=== PATIENT | female | born 1940 | race African-American/Black ===

== ENCOUNTER 2016-09-16 12:32 | Inpatient (IN) | payer MEDICARE, BC ==
[2016-09-16] VITALS (356 sets, daily range): BP systolic 152; BP diastolic 82; PULSE 65; TEMP 97.3; O2SAT 93–100
[~2016-09-16] VITALS: Ht 175.3 cm; Wt 103.7 kg
[2016-09-16 13:48] LABS: BASO % 0.5 % (0.0-2.0); EOS % 0.9 % (0-4.0); GRAN # 2.2 (1.4-6.5); LYMPH # 1.5 (1.2-3.4); MEAN CELL VOLUME 82 fl (80.0-100.0); MEAN CORPUSCULAR HGB CONC 32 g/dl (33.0-37.0); MEAN PLATELET VOLUME 11.2 fl (7.4-10.4); MONO # 0.5 (0.1-0.6); MONO % 11.4 % (1.7-9.3); PLATELET COUNT 144 K/mm3 (130-400); RED BLOOD COUNT 4.35 M/mm3 (4.10-5.30); REDCELL DISTRIBUTION WIDTH-CV 14.6 % (11.5-14.5); WHITE BLOOD COUNT 4.3 K/mm3 (4.8-10.8)
[2016-09-16 13:52] LABS: HEMATOCRIT 35.8 % (37.0-47.0); HEMOGLOBIN 11.4 g/dl (12.5-16.0); MEAN CORPUSCULAR HEMOGLOBIN 26 pg (27.0-31.0)
[2016-09-16 13:53] LABS: ADJUSTED CALCIUM 10.3 mg/dL (8.4-10.2); ALANINE AMINOTRANSFERASE 34 U/L (9-52); ALKALINE PHOSPHATASE 118 U/L (50-136); ANION GAP 10 mmol/L (7-16); BILIRUBIN,TOTAL 0.8 mg/dL (0.0-1.0); BLOOD UREA NITROGEN 13 mg/dL (7-17); CALCIUM 10.3 mg/dL (8.4-10.2); CARBON DIOXIDE 30 mmol/L (22-30); CHLORIDE 102 mmol/L (98-107); CREATININE, serum 0.79 mg/dL (0.52-1.25); GLUCOSE 110 mg/dL (74-106); POTASSIUM 3.9 mmol/L (3.4-5.0); SODIUM 142 mmol/L (137-145)
[2016-09-16 13:55] LABS: INR 1.1 (0.8-3.0); PROTHROMBIN TIME 12.6 SECONDS (9.7-12.8)
[2016-09-16 13:58] LABS: PARTIAL THROMBOPLASTIN TIME 31.7 SECONDS (26.0-37.0)
[2016-09-16 14:05] LABS: B-TYPE NATRIURETIC PEPTIDE 45 pg/mL (0-125); TROPONIN-I < 0.012 ng/mL (0.000-0.034)
[2016-09-16] MEDS ORDERED: NORVASC 10MG10 MG PO (16:32)
[2016-09-16] MEDS ORDERED: PLAVIX 75MG TAB75 MG PO (16:32)
[2016-09-16] MEDS ORDERED: PRENATAL PO (16:33)
[2016-09-16] MEDS ORDERED: COZAAR100 MG PO (16:33)
[2016-09-16] MEDS ORDERED: NEURONTIN300 MG/CAP PO (16:33)
[2016-09-16] MEDS ORDERED: PRAVACHOL 20MG20 MG PO (16:34)
[2016-09-17] VITALS (784 sets, daily range): BP systolic 123–196; BP diastolic 64–107; PULSE 70–86; TEMP 97.3–98.4; O2SAT 88–100
[2016-09-17 04:51] LABS: PH 5 (5-8); SQUAMOUS EPITHELIAL 0-2 /hpf; URINE APPEARANCE Clear; URINE BACTERIA None Seen /hpf; URINE BILIRUBIN Negative (NEGATIVE); URINE BLOOD Negative (NEGATIVE); URINE COLOR Yellow; URINE GLUCOSE Negative (NEGATIVE); URINE KETONE Negative (NEGATIVE); URINE RBC 0-2 /hpf; URINE UROBILINOGEN Negative (NEGATIVE)
[2016-09-17 05:58] LABS: BASO % 0.4 % (0.0-2.0); EOS # 0.1 (0.0-0.7); EOS % 1.3 % (0-4.0); GRAN # 2.5 (1.4-6.5); GRAN % 55.4 % (42.2-75.2); LYMPH # 1.5 (1.2-3.4); LYMPH % 33.3 % (20.0-51.0); MEAN CELL VOLUME 81 fl (80.0-100.0); MEAN CORPUSCULAR HGB CONC 32 g/dl (33.0-37.0); MEAN PLATELET VOLUME 11.4 fl (7.4-10.4); MONO # 0.4 (0.1-0.6); MONO % 9.2 % (1.7-9.3); PLATELET COUNT 147 K/mm3 (130-400); REDCELL DISTRIBUTION WIDTH-CV 14.6 % (11.5-14.5); WHITE BLOOD COUNT 4.5 K/mm3 (4.8-10.8)
[2016-09-17 06:12] LABS: HEMATOCRIT 34.2 % (37.0-47.0); HEMOGLOBIN 10.9 g/dl (12.5-16.0); MEAN CORPUSCULAR HEMOGLOBIN 26 pg (27.0-31.0)
[2016-09-17 06:14] LABS: ANION GAP 12 mmol/L (7-16); BLOOD UREA NITROGEN 12 mg/dL (7-17); CALCIUM 10.3 mg/dL (8.4-10.2); CARBON DIOXIDE 29 mmol/L (22-30); CHLORIDE 102 mmol/L (98-107); CREATININE, serum 0.67 mg/dL (0.52-1.25); GLUCOSE 112 mg/dL (74-106); POTASSIUM 3.8 mmol/L (3.4-5.0); SODIUM 142 mmol/L (137-145)
[2016-09-17 06:30] LABS: TROPONIN-I < 0.012 ng/mL (0.000-0.034)
[2016-09-17 06:42] LABS: CHOLESTEROL 155 mg/dL (120-200); HDL CHOLESTEROL 30 mg/dL; LDL CHOLESTEROL 85 mg/dL; TRIGLYCERIDE 202 mg/dL
[2016-09-17 13:00] LABS: INR 1.2 (0.8-3.0); PROTHROMBIN TIME 13.8 SECONDS (9.7-12.8)
[2016-09-17 16:54] LABS: CREATININE, serum 0.64 mg/dL (0.52-1.25); POTASSIUM 3.9 mmol/L (3.4-5.0)
[2016-09-18 04:13] VITALS: BP 136/60; PULSE 79; TEMP 98.1
[2016-09-18 08:10] VITALS: BP 134/58; PULSE 82; TEMP 97.9
[2016-09-18] MEDS ORDERED: ASPIRIN 81M81 MG/TA2 PO (09:30)
[2016-09-18] MEDS ORDERED: ZEBETA 5MG5 MG PO (09:31)
[2016-09-18 11:36] VITALS: BP 149/59; PULSE 101; TEMP 97.9
== END 2016-09-18 13:48 | disposition home or self-care (01) | DRG 287 ==
LOC: COL.ER 12:32 → IMCU 16:13 → MEDICAL 09-17 17:45
PROVIDERS: Emergency Medicine; Internal Medicine; Internal Medicine Cardiovascular Disease; Physician Assistant
PROC: B2111ZZ Fluoroscopy of Multiple Coronary Arteries using Low Osmolar Contrast (ICD-10-PCS; principal; 2016-09-17)
DX: I25.110 Atherosclerotic heart disease of native coronary artery with unstable angina pectoris (principal); I10 Essential (primary) hypertension; E11.9 Type 2 diabetes mellitus without complications; Z66 Do not resuscitate; Z87.891 Personal history of nicotine dependence; Z86.73 Personal history of transient ischemic attack (TIA), and cerebral infarction without residual deficits
CPT/HCPCS: OP; 99223-AI; 99232-AI; 99239; C1769; C1887; C1894; J0360; J1644; J1650; J2250; J3010; J7030; Q9967

== ENCOUNTER 2020-02-02 07:44 | Day surgery (SDC) | payer MEDICARE, OTHER ==
[2020-02-02] VITALS (280 sets, daily range): BP systolic 145–187; BP diastolic 71–116; PULSE 56–64; TEMP 97.6–98.4; O2SAT 82–100
[~2020-02-02] VITALS: Ht 175.3 cm; Wt 100.5 kg
[~2020-02-02 07:44] MED LIST: ASPIRIN 81M81 MG/TA2 PO; COZAAR100 MG PO; NEURONTIN300 MG/CAP PO; NORVASC 10MG10 MG PO; PLAVIX 75MG TAB75 MG PO; PRAVACHOL 20MG20 MG PO; PRENATAL PO; ZEBETA 5MG5 MG PO
[2020-02-02 09:08] LABS: HEMATOCRIT 34.2 % (37.0-47.0); HEMOGLOBIN 10.5 g/dl (12.5-16.0); MEAN CELL VOLUME 82 fl (80.0-100.0); MEAN CORPUSCULAR HEMOGLOBIN 25 pg (27.0-31.0); MEAN CORPUSCULAR HGB CONC 31 g/dl (33.0-37.0); MEAN PLATELET VOLUME 11.7 fl (7.4-10.4); PLATELET COUNT 138 K/mm3 (130-400); RED BLOOD COUNT 4.15 M/mm3 (4.10-5.30); REDCELL DISTRIBUTION WIDTH-CV 16.5 % (11.5-14.5)
[2020-02-02 09:14] LABS: INR 1.2 (0.8-3.0); PROTHROMBIN TIME 12.9 SECONDS (9.7-12.8)
[2020-02-02] MEDS ORDERED: LIPITOR 40MG TA40 MG PO (09:16)
[2020-02-02 09:17] LABS: PARTIAL THROMBOPLASTIN TIME 19.6 SECONDS (26.0-37.0)
[2020-02-02] MEDS ORDERED: COREG12.5 MG PO (09:17)
[2020-02-02] MEDS ORDERED: GLUCOPHAGE500 MG/TAB PO (09:18)
[2020-02-02 09:19] LABS: CALCIUM 10.1 mg/dL (8.4-10.2); CREATININE, serum 0.75 (0.52-1.25); POTASSIUM 4.2 mmol/L (3.4-5.0)
--- NOTE | 2020-02-02 10:23 | NUR ---
SEE MERGE DOCUMENTATION FOR MEDICATION ADMINISTRATION AND INTRA/POST PROCEDURE SEDATION ASSESSMENTS.
[2020-02-02] MEDS ORDERED: IMDUR 60MG60 MG/TAB PO (14:56)
[2020-02-02] MEDS ORDERED: COREG 25MG25 MG/TAB PO (14:56)
[2020-02-02] MEDS ORDERED: LIPITOR 80MG80 MG PO (14:56)
--- NOTE | 2020-02-02 20:00 | NUR ---
5 CC'S OF AIR REMOVED FROM SAFEGUARD R FEMORAL SITE. NO BLEEDING, SWELLING, OR HEMATOMA NOTED. WILL CONTINUE TO MONITOR FOR BLEEDING AND OTHER COMPLICATIONS.
--- NOTE | 2020-02-02 22:00 | NUR ---
5 cc's of air removed from femoral cath site. No bleeding or hematoma noted. Will continue to monitor.
[2020-02-03] VITALS (314 sets, daily range): BP systolic 131–154; BP diastolic 57–72; PULSE 64–79; TEMP 97.3–98.2; O2SAT 89–100
--- NOTE | 2020-02-03 | NUR ---
Removed additional 5 cc's of air from safeguard femoral site. No bleeding or hematoma noted. Will continue to monitor.
--- NOTE | 2020-02-03 04:00 | NUR ---
Femostop taken off with no blood or hematoma noted. Gauze was removed and changed due to urine from incontinence soaking the orginal gauze and tape.
[2020-02-03 05:52] LABS: BASO % 0.2 % (0.0-2.0); EOS # 0.1 (0.0-0.7); EOS % 1.6 % (0-4.0); GRAN # 3.6 (1.4-6.5); GRAN % 64.1 % (42.2-75.2); LYMPH # 1.5 (1.2-3.4); LYMPH % 26.2 % (20.0-51.0); MEAN CELL VOLUME 81 fl (80.0-100.0); MEAN CORPUSCULAR HEMOGLOBIN 25 pg (27.0-31.0); MEAN CORPUSCULAR HGB CONC 31 g/dl (33.0-37.0); MEAN PLATELET VOLUME 10.8 fl (7.4-10.4); MONO # 0.4 (0.1-0.6); MONO % 7.7 % (1.7-9.3); PLATELET COUNT 140 K/mm3 (130-400); RED BLOOD COUNT 3.94 M/mm3 (4.10-5.30); REDCELL DISTRIBUTION WIDTH-CV 16.3 % (11.5-14.5)
[2020-02-03 05:54] LABS: HEMATOCRIT 31.8 % (37.0-47.0)
[2020-02-03 06:03] LABS: CALCIUM 9.8 mg/dL (8.4-10.2); CREATININE, serum 0.67 (0.52-1.25); POTASSIUM 4.1 mmol/L (3.4-5.0)
--- NOTE | 2020-02-03 11:53 | NUR ---
Patient discharged to home and picked up by friend in private vehicle. Discharge packet and instructions were went over with patient and all patient belongings were with patient upon departure. IV was removed and gauze and tape were placed. Right femoral site is C/D/I and site care instructions were discussed with pateint.
--- NOTE | 2020-02-03 12:50 | NUR ---
Before patient was discharged laboratory tester prayed and offered support.
== END 2020-02-03 11:46 | disposition home or self-care (01) ==
LOC: COL.CAR 07:44 → ICU 10:56 → COL.CAR 02-03 11:46
PROVIDERS: Internal Medicine Cardiovascular Disease
DX: I25.110 Atherosclerotic heart disease of native coronary artery with unstable angina pectoris (principal); I48.0 Paroxysmal atrial fibrillation; Z98.61 Coronary angioplasty status; I10 Essential (primary) hypertension; E78.5 Hyperlipidemia, unspecified; Z88.0 Allergy status to penicillin; Z88.2 Allergy status to sulfonamides; Z88.8 Allergy status to other drugs, medicaments and biological substances; Z79.84 Long term (current) use of oral hypoglycemic drugs; R94.39 Abnormal result of other cardiovascular function study; I08.1 Rheumatic disorders of both mitral and tricuspid valves
CPT/HCPCS: OP; C1725; C1760; C1769; C1874; C1887; C1894; C9600; J0583; J1644; J2250; J3010

== ENCOUNTER 2021-06-30 10:15 | Day surgery (SDC) | payer MEDICARE ==
[2021-06-30] VITALS (12 sets, daily range): BP systolic 131–204; BP diastolic 62–112; PULSE 59–76; TEMP 99
[~2021-06-30] VITALS: Ht 175.4 cm; Wt 91.4 kg
[~2021-06-30 10:15] MED LIST changes: +COREG 25MG25 MG/TAB PO; +COREG12.5 MG PO; +GLUCOPHAGE500 MG/TAB PO; +IMDUR 60MG60 MG/TAB PO; +LIPITOR 40MG TA40 MG PO; +LIPITOR 80MG80 MG PO
[2021-06-30] MEDS ORDERED: LIPITOR 80MG80 MG PO (11:23)
[2021-06-30] MEDS ORDERED: IMDUR 60MG60 MG/TAB PO ×2 (11:23→14:19)
[2021-06-30] MEDS ORDERED: COREG 25MG25 MG/TAB PO (11:24)
[2021-06-30 12:11] LABS: HEMOGLOBIN 10.8 g/dl (12.5-16.0); MEAN CELL VOLUME 80 fl (80.0-100.0); MEAN CORPUSCULAR HEMOGLOBIN 26 pg (27-31); MEAN CORPUSCULAR HGB CONC 32 g/dl (33.0-37.0); MEAN PLATELET VOLUME 10.3 fl (7.4-10.4); PLATELET COUNT 165 K/mm3 (130-400); RED BLOOD COUNT 4.22 M/mm3 (4.10-5.30); REDCELL DISTRIBUTION WIDTH-CV 17.9 % (11.5-14.5)
[2021-06-30 12:12] LABS: HEMATOCRIT 33.6 % (37.0-47.0)
[2021-06-30 12:15] LABS: CALCIUM 10.3 mg/dL (8.4-10.2); CREATININE, serum 0.77 mg/dL (0.57-1.11); POTASSIUM 4.3 mmol/L (3.5-4.5)
--- NOTE | 2021-06-30 13:08 | NUR ---
SEE MERGE FOR ALL MEDICATION ADMINISTRATION TIMES, INTRA AND POST SEDATION ASSESSMENTA
[2021-06-30 13:18] LABS: INR 1.2 (0.8-3.0); PROTHROMBIN TIME 13.4 SECONDS (9.7-12.8)
[2021-06-30 13:20] LABS: PARTIAL THROMBOPLASTIN TIME 31.5 SECONDS (26.0-37.0)
--- NOTE | 2021-06-30 14:06 | NUR ---
Rt radial site dressed with 2x2 gauze and tegaderm. Dressing clean, dry and intact. Area soft to palpation. Pt resting comfortably. She is asked not notify staff at once if she develops tightness or discomfort to rt wrist or groin sites. She expresses understanding. Call light in reach.
[2021-06-30] MEDS ORDERED: APRESOLINE 25MG25 MG PO (14:20)
--- NOTE | 2021-06-30 17:51 | NUR ---
INT discontinued intact. Right groin site dressing changed, no drainage noted. Discharge instructions given.
--- NOTE | 2021-06-30 18:16 | NUR ---
Transferred to private car by ivy
== END 2021-06-30 18:16 | disposition home or self-care (01) ==
LOC: COL.CAR 10:15
PROVIDERS: Internal Medicine Cardiovascular Disease
DX: I25.10 Atherosclerotic heart disease of native coronary artery without angina pectoris (principal); I25.84 Coronary atherosclerosis due to calcified coronary lesion; I10 Essential (primary) hypertension; Z95.5 Presence of coronary angioplasty implant and graft
CPT/HCPCS: C1760; C1769; C1887; C1894; J0153; J0583; J1644; J2250; J3010